=== PATIENT | male | born 1975 | race Caucasian/White ===

== ENCOUNTER 2017-10-23 04:19 | Emergency (ER) | payer SELFPAY ==
[~2017-10-23] VITALS: Ht 200.7 cm; Wt 147.4 kg
[~2017-10-23 04:19] MED LIST: ACHYD1T GT; ACHYD1T PO; CPR500T PO; CYCL10TA9 PO; MECL-124 PO; MECL25TA56 PO; NITR100C3 PO; ONDAN4ODT PO; OXYC-109 PO; OXYC-272 PO; PNT40TEC PO; PRM25T PO
--- OUTSIDE RECORDS SUMMARY | 2017-10-23 04:24 | XMS REPORT | Continuity of Care Document ---
Author Author [facility] Organization [facility] Address Unknown Phone Unavailable Allergies Active Description Code Type Severity Reaction Onset Reported/Identified Relationship to Patient Clinical Status Yes BEES BEES Unknown N/A 12/24/2009 Medications There is no data. Problems Date Dx Coded Attending Type Code Diagnosis Diagnosed By 12/24/2009 Ot 591 12/24/2009 Ot 592.1 12/24/2009 Ot 599.0 12/24/2009 Ot 789.09 12/26/2009 Ot 592.1 12/26/2009 Ot 789.00 01/15/2010 Ot 592.1 01/15/2010 Ot 789.09 01/21/2010 Ot 592.0 01/21/2010 Ot 592.1 04/08/2010 Ot 275.41 04/08/2010 Ot 276.51 04/08/2010 Ot 278.00 04/08/2010 Ot 304.30 04/08/2010 Ot 305.60 04/08/2010 Ot 401.9 04/08/2010 Ot 530.81 04/08/2010 Ot 553.3 04/08/2010 Ot 787.91 04/08/2010 Ot V13.01 04/08/2010 Ot V85.36 03/31/2011 Ot 278.00 03/31/2011 Ot 592.1 03/31/2011 Ot V85.39 01/17/2012 Ot 535.50 01/17/2012 Ot 562.10 01/17/2012 Ot 577.0 01/17/2012 Ot 789.00 02/25/2013 BRIDGET TOWNSEND DO Ot 816.10 02/25/2013 BRIDGET TOWNSEND DO Ot 959.5 02/25/2013 BRIDGET TOWNSEND DO Ot E000.8 02/25/2013 BRIDGET TOWNSEND DO Ot E029.9 02/25/2013 BRIDGET TOWNSEND DO Ot E849.0 02/25/2013 BRIDGET TOWNSEND DO Ot E918 02/25/2013 BRIDGET TOWNSEND DO Ot V06.1 03/15/2014 GUILLE FELDMAN MD Ot 780.4 03/15/2014 GUILLE FELDMAN MD Ot 787.01 11/17/2014 Ot 592.1 11/17/2014 Ot V72.83 11/17/2014 Ot V74.8 11/17/2014 Ot 592.1 11/17/2014 Ot V67.09 11/17/2014 Ot 401.9 11/17/2014 Ot 530.81 11/17/2014 Ot 780.4 11/17/2014 Ot 782.62 11/17/2014 Ot 786.07 11/17/2014 Ot 786.09 11/17/2014 MARCO ANTONIO DELAROSA MD Ot 783.21 Procedures There is no data. Results There is no data. Encounters ACCT No. Visit Date/Time Discharge Status Pt. Type Provider Facility Loc./Unit Complaint [id number] 12/19/2014 12:45:00 12/19/2014 23:59:59 CLS Outpatient MARCO ANTONIO DELAROSA MD [facility] [id number] 12/17/2014 13:23:00 12/17/2014 16:16:00 DIS Emergency VINNY HARVEY [facility] ER [id number] 11/17/2014 09:41:00 11/17/2014 13:12:00 DIS Emergency GUILLE FELDMAN MD [facility] ER [id number] 03/15/2014 09:33:00 03/15/2014 12:30:00 DIS Emergency GUILLE FELDMAN MD [facility] ER [id number] 02/25/2013 10:02:00 02/25/2013 13:48:00 DIS Emergency KRISTIANBRIDGET Nagy DO [facility] ER [id number] 01/12/2013 08:33:00 01/12/2013 23:59:59 CLS Outpatient MARCO ANTONIO DELAROSA MD [facility] LAB [id number] 05/09/2012 09:46:00 Document Registration [id number] 01/17/2012 07:20:00 Document Registration [id number] 04/13/2011 14:48:00 Document Registration [id number] 03/31/2011 01:40:00 Document Registration [id number] 04/08/2010 08:10:00 Document Registration [id number] 01/21/2010 06:02:00 Document Registration [id number] 01/20/2010 14:34:00 Document Registration [id number] 01/15/2010 15:34:00 Document Registration [id number] 12/26/2009 07:40:00 Document Registration [id number] 12/24/2009 19:00:00 Document Registration
[2017-10-23] MEDS ORDERED: ONDANSETRON 4 MG/2 ML (SDV) Z0FRAN ONE (04:26)
[2017-10-23] MEDS ORDERED: fentaNYL INJECTION 100 MCG/2 ML AMP ONE (04:26)
[2017-10-23] MEDS ORDERED: KETOROLAC 30 MG/ML VIAL ONE (04:27)
[2017-10-23] MEDS ORDERED: NS IV 1000 ML 1,000 ML ONE (04:27)
[2017-10-23] MEDS ORDERED: NS IV 1000 ML 1,000 ML IV STA (04:29)
[2017-10-23] MEDS ORDERED: fentaNYL INJECTION 100 MCG/2 ML AMP IVP STA (04:29)
[2017-10-23] MEDS ORDERED: KETOROLAC 30 MG/ML VIAL IVP STA (04:29)
[2017-10-23] MEDS ORDERED: ONDANSETRON 4 MG/2 ML (SDV) Z0FRAN IVP ONE (04:30)
--- NOTE | 2017-10-23 04:43 | ED GU-Male ---
General Stated Complaint: POSS KIDNEY STONE/DIFF URINATING Source: patient Exam Limitations: no limitations History of Present Illness Date Seen by Provider: October 23, 2017 Time Seen by Provider: 04:26 Initial Comments Here with report of urinating blood and having fairly significant lower abdominal: Left flank/back pain. Onset a few days ago and has been intermittent since. He actually thought he was a little better and then this morning got markedly worse. He did take an old antibiotic plus Percocet last night and has had not had any relief from that. Reports urinary frequency. Complains of chills and shivering. Has had nausea but no vomiting. History of kidney stones in the past. Timing/Duration: getting worse, changing over time Severity/Quality: moderate, severe, aching, sharp Location: suprapubic, left flank Radiation: none Activities at Onset: none Modifying Factors: Worsens With Movement, Worsens With Urinating Associated Symptoms: dysuria, fever/chills, lower back pain, nausea/vomiting, urinary frequency Allergies and Home Medications Allergies Uncoded Allergies: BEES (Allergy, 12/24/09) Home Medications Ciprofloxacin HCl 500 Mg Tablet, 500 MG PO BID Prescribed by: DONNA ROJAS on 10/23/17526 Cyclobenzaprine Hcl 10 Mg Tablet, 1 EACH PO Q8H PRN for SPASMS Prescribed by: VINNY KO on 12/17/14 1605 Hydrocodone Bit/Acetaminophen 1 Ea Tablet, 1 EACH PO Q6H Prescribed by: DONNA ROJAS on 10/23/17526 Phenazopyridine HCl 100 Mg Tablet, 100 MG PO Q8H Prescribed by: DONNA ROJAS on 10/23/17526 Patient Home Medication List Home Medication List Reviewed: Yes Review of Systems Constitutional: see HPI, chills; No fever, No weakness EENTM: no symptoms reported Respiratory: no symptoms reported; No cough, No short of breath Cardiovascular: no symptoms reported Gastrointestinal: nausea; No vomiting Genitourinary: see HPI, burning, dysuria, frequency, flank pain, hematuria, pain, urgency Musculoskeletal: see HPI, back pain; No muscle pain Skin: no symptoms reported Psychiatric/Neurological: No Symptoms Reported All Other Systemes Reviewed Negative Unless Noted: Yes Past Gaapxzq-Ytmmoe-Qaadjh Hx Past Med/Social Hx: Reviewed Nursing Past Med/Soc Hx Patient Social History Alcohol Use: Denies Use Recreational Drug Use: No Smoking Status: Never a Smoker Recent Foreign Travel: No Contact w/Someone Who Travel: No Immunizations Up To Date Tetanus Booster (TDap): Unknown Seasonal Allergies Seasonal Allergies: No Past Medical History Surgeries: Yes Orthopedic Respiratory: No Cardiac: No Neurological: No Reproductive Disorders: Yes Sexually Transmitted Disease: Yes (hx of genital warts, removed by Dr. Roman 1993) Genitourinary: Yes Kidney Stones Gastrointestinal: No Musculoskeletal: No Endocrine: No Psychosocial: No Family Medical History Reviewed Nursing Family Hx No Pertinent Family Hx Physical Exam Vital Signs Vital Signs - First Documented 10/23/17 04:25 Temp 98.2 Pulse 85 Resp 20 B/P (MAP) 149/114 (126) Pulse Ox 99 O2 Delivery Room Air Capillary Refill : General Appearance: WD/WN, moderate distress HEENT: PERRL/EOMI, pharynx normal Neck: full range of motion, supple Cardiovascular: regular rate, rhythm, no murmur Respiratory: lungs clear, no respiratory distress Gastrointestinal: non tender, soft Back: normal inspection, no CVA tenderness, no vertebral tenderness Extremities: non-tender, normal inspection, no pedal edema Neurologic/Psychiatric: alert, oriented x 3 Skin: normal color, warm/dry Progress/Results/Core Measures Suspected Sepsis SIRS Temperature: Pulse: Respiratory Rate: Laboratory Tests 10/23/17 04:36: White Blood Count 13.1H Blood Pressure / Mean: Laboratory Tests 10/23/17 04:36: Creatinine 1.01, Platelet Count 203, Total Bilirubin 0.3 Results/Orders Lab Results Laboratory Tests Test 10/23/17 04:36 10/23/17 04:39 Range/Units White Blood Count 13.1 H 4.3-11.0 10^3/uL Red Blood Count 4.88 4.35-5.85 10^6/uL Hemoglobin 14.8 13.3-17.7 G/DL Hematocrit 43 40-54 % Mean Corpuscular Volume 88 80-99 FL Mean Corpuscular Hemoglobin 30 25-34 PG Mean Corpuscular Hemoglobin Concent 35 32-36 G/DL Red Cell Distribution Width 12.4 10.0-14.5 % Platelet Count 203 130-400 10^3/uL Mean Platelet Volume 10.5 H 7.4-10.4 FL Neutrophils (%) (Auto) 72 42-75 % Lymphocytes (%) (Auto) 18 12-44 % Monocytes (%) (Auto) 7 0-12 % Eosinophils (%) (Auto) 4 0-10 % Basophils (%) (Auto) 0 0-10 % Neutrophils # (Auto) 9.4 H 1.8-7.8 X 10^3 Lymphocytes # (Auto) 2.3 1.0-4.0 X 10^3 Monocytes # (Auto) 0.9 0.0-1.0 X 10^3 Eosinophils # (Auto) 0.5 H 0.0-0.3 10^3/uL Basophils # (Auto) 0.0 0.0-0.1 10^3/uL Sodium Level 139 135-145 MMOL/L Potassium Level 4.0 3.6-5.0 MMOL/L Chloride Level 108 H 98-107 MMOL/L Carbon Dioxide Level 20 L 21-32 MMOL/L Anion Gap 11 5-14 MMOL/L Blood Urea Nitrogen 12 7-18 MG/DL Creatinine 1.01 0.60-1.30 MG/DL Estimat Glomerular Filtration Rate > 60 BUN/Creatinine Ratio 12 Glucose Level 127 H 70-105 MG/DL Calcium Level 9.9 8.5-10.1 MG/DL Total Bilirubin 0.3 0.1-1.0 MG/DL Aspartate Amino Transf (AST/SGOT) 25 5-34 U/L Alanine Aminotransferase (ALT/SGPT) 36 0-55 U/L Alkaline Phosphatase 70 40-136 U/L Total Protein 7.4 6.4-8.2 GM/DL Albumin 4.2 3.2-4.5 GM/DL Urine Color YELLOW Urine Clarity SLIGHTLY CLOUDY Urine pH 5 5-9 Urine Specific [place] 1.020 1.016-1.022 Urine Protein 3+ H NEGATIVE Urine Glucose (UA) NEGATIVE NEGATIVE Urine Ketones NEGATIVE NEGATIVE Urine Nitrite NEGATIVE NEGATIVE Urine Bilirubin NEGATIVE NEGATIVE Urine Urobilinogen NORMAL NORMAL MG/DL Urine Leukocyte Esterase 3+ H NEGATIVE Urine RBC (Auto) 5+ H NEGATIVE Urine RBC 50-100 H /HPF Urine WBC 50-100 H /HPF Urine Squamous Epithelial Cells 2-5 /HPF Urine Crystals NONE /LPF Urine Bacteria MODERATE H /HPF Urine Casts NONE /LPF Urine Mucus MODERATE H /LPF Urine Culture Indicated YES My Orders Orders - DONNA ROJAS MD Cbc With Automated Diff (10/23/17 04:29) Comprehensive Metabolic Panel (10/23/17 04:29) Ua Culture If Indicated (10/23/17 04:29) Fentanyl Injection (Sublimaze Injection (10/23/17 04:29) Ketorolac Injection (Toradol Injection) (10/23/17 04:29) Ondansetron Injection (Zofran Injectio (10/23/17 04:30) Ns Iv 1000 Ml (Sodium Chloride 0.9%) (10/23/17 04:29) Saline Lock/Iv-Start (10/23/17 04:29) Ct Abd/Pelvis Wo(Kidney Stone) (10/23/17 04:29) Fentanyl Injection (Sublimaze Injection (10/23/17 04:26) Ondansetron Injection (Zofran Injectio (10/23/17 04:26) Ketorolac Injection (Toradol Injection) (10/23/17 04:27) Ns Iv 1000 Ml (Sodium Chloride 0.9%) (10/23/17 04:27) Urine Culture (10/23/17 04:39) Ciprofloxacin Tablet (Cipro Tablet) (10/23/17 05:30) Phenazopyridine Tablet (Pyridium Tablet) (10/23/17 05:30) Hydrocodone/Apap 7.5/325 Tab (Lortab 7. (10/23/17 05:17) Saline Lock/Iv-Start (10/23/17 05:17) Ns Iv 1000 Ml (Sodium Chloride 0.9%) (10/23/17 05:17) Medications Given in ED Current Medications Medications Dose Ordered Sig/Annelise Route Start Time Stop Time Status Last Admin Dose Admin Ondansetron HCl 4 mg ONCE ONCE IVP 10/23/17 04:30 10/23/17 04:33 DC 10/23/17 04:41 4 MG Phenazopyridine HCl 200 mg ONCE ONCE PO 10/23/17 05:30 10/23/17 05:31 DC 10/23/17 05:25 200 MG Sodium Chloride 1,000 ml @ 0 mls/hr Q0M ONCE IV 10/23/17 05:17 10/23/17 05:19 DC 10/23/17 05:21 1,000 MLS/HR Vital Signs/I&O 10/23/17 04:25 Temp 98.2 Pulse 85 Resp 20 B/P (MAP) 149/114 (126) Pulse Ox 99 O2 Delivery Room Air Capillary Refill : Progress Note : Progress Note Seen and evaluated. IV, labs and UA ordered. Normal saline 1 L bolus. Fentanyl 75 g IV, Toradol 30 mg IV and Zofran [address] abdomen pelvis rule out kidney stone ordered. Monitor patient. 0515: Repeat normal saline 1 L bolus. Urinary tract infection noted on UA. Cipro 500 mg by mouth ordered. Pyridium 200 mg by mouth. Hydrocodone 7.5/325 one tab by mouth ordered. We will repeat normal saline 1 L bolus to ensure that there is continued urine flow and to prevent hematuria from forming obstructive clots. Patient was in agreement. Anticipate discharge after. 0600: CT results noted. Discharged home with return precautions. Patient verbalize understanding instructions and agreement with plan. We will increase Cipro prescription to total of 14 days due to concerns of prostatitis. Diagnostic Imaging Diagonstic Imaging: CT Plain Films/CT/US/NM/MRI: abdomen, pelvis Comments Punctate nonobstructing stone in the interpolar region of each kidney. No hydronephrosis. Suspected bowel wall thickening versus under distention of the urinary bladder. Correlate clinically with urinalysis to exclude cystitis. Fat stranding strength; no vesicles and prostate raising concern for prostatitis /seminal vesicle colitis. Correlate clinically. Reviewed: Reviewed [place] Hawk Study, Reviewed by Me Departure Impression Primary Impression: Urinary tract infection Qualified Codes: N30.01 - Acute cystitis with hematuria Disposition: HOME, SELF-CARE Condition: Improved Departure-Patient Inst. Decision time for Depature: 06:00 Referrals: NO,LOCAL PHYSICIAN (PCP/Family) Primary Care Physician Patient Instructions: Blood in the Urine (Hematuria) in Adults, Urinary Tract Infection, Adult (DC) Add. Discharge Instructions: Take medications as directed. You may take ibuprofen 800 mg every 8 hours as needed for pain as well. You may take Tylenol/acetaminophen 1000 mg every 8 hours as needed for pain if you are not taking any prescribed pain medicine ( hydrocodone/acetaminophen combination). It is very important that he drink plenty of fluids. Follow-up with your doctor in a few days for recheck. Return for worse pain, fever, vomiting, weakness, breathing problems or other concerns as needed. Scripts Hydrocodone Bit/Acetaminophen (LORTAB 7.5 MG TABLET) 1 Ea Tablet 1 EACH PO Q6H, #8 TAB 0 Refills Prov: DONNA ROJAS MD 10/23/17 Ciprofloxacin HCl (Ciprofloxacin HCl) 500 Mg Tablet 500 MG PO BID, #10 TAB Prov: DONNA ROJAS MD 10/23/17 Phenazopyridine HCl (Pyridium) 100 Mg Tablet 100 MG PO Q8H, #6 TAB 0 Refills Prov: DONNA ROJAS MD 10/23/17 DONNA ROJAS MD October 23, 2017 04:43
[2017-10-23 04:47] LABS: BASOPHILS % (AUTO) 0 % (0-10); EOSINOPHILS # (AUTO) 0.5 10^3/uL (0.0-0.3); EOSINOPHILS % (AUTO) 4 % (0-10); HEMATOCRIT 43 % (40-54); HEMOGLOBIN 14.8 G/DL (13.3-17.7); LYMPHOCYTES # (AUTO) 2.3 X 10^3 (1.0-4.0); LYMPHOCYTES % (AUTO) 18 % (12-44); MEAN CORPUSCULAR HEMOGLOBIN 30 PG (25-34); MEAN CORPUSCULAR HGB CONC 35 G/DL (32-36); MEAN CORPUSCULAR VOLUME 88 FL (80-99); MEAN PLATELET VOLUME 10.5 FL (7.4-10.4); MONOCYTES # (AUTO) 0.9 X 10^3 (0.0-1.0); MONOCYTES % (AUTO) 7 % (0-12); NEUTROPHILS # (AUTO) 9.4 X 10^3 (1.8-7.8); NEUTROPHILS % (AUTO) 72 % (42-75); PLATELET COUNT 203 10^3/uL (130-400); RED BLOOD COUNT 4.88 10^6/uL (4.35-5.85); RED CELL DISTRIBUTION WIDTH 12.4 % (10.0-14.5); WHITE BLOOD COUNT 13.1 10^3/uL (4.3-11.0)
[2017-10-23 04:48] LABS: BILIRUBIN,URINE NEGATIVE (NEGATIVE); CLARITY,URINE SLIGHTLY CLOUDY; COLOR,URINE YELLOW; GLUCOSE, URINE (UA) NEGATIVE (NEGATIVE); KETONES,URINE NEGATIVE (NEGATIVE); LEUKOCYTE ESTERASE ,URINE 3+ (NEGATIVE); NITRITE,URINE NEGATIVE (NEGATIVE); PH,URINE 5 (5-9); PROTEIN,URINE 3+ (NEGATIVE); UROBILINOGEN,URINE NORMAL (NORMAL)
[2017-10-23 04:57] LABS: BACTERIA,URINE MODERATE /HPF; RBC,URINE 50-100 /HPF; WBC,URINE 50-100 /HPF
[2017-10-23 05:11] LABS: BUN/CREATININE RATIO 12; CARBON DIOXIDE 20 MMOL/L (21-32); CHLORIDE 108 MMOL/L (98-107); CREATININE SERUM 1.01 MG/DL (0.60-1.30); SODIUM 139 MMOL/L (135-145)
[2017-10-23 05:12] LABS: ALANINE AMINOTRANSFERASE 36 U/L (0-55); ALBUMIN 4.2 GM/DL (3.2-4.5); ALKALINE PHOSPHATASE 70 U/L (40-136); BILIRUBIN,TOTAL 0.3 MG/DL (0.1-1.0); CALCIUM 9.9 MG/DL (8.5-10.1); GFR ESTIMATED > 60; GLUCOSE 127 MG/DL (70-105); TOTAL PROTEIN 7.4 GM/DL (6.4-8.2)
[2017-10-23] MEDS ORDERED: HYDROcodone/APAP 7.5 MG/325 MG (LORTAB, LORCET PLUS) TABLET PO STA (05:17)
[2017-10-23] MEDS ORDERED: NS IV 1000 ML 1,000 ML IV ONE (05:17)
[2017-10-23] MEDS ORDERED: PHEN-639 PO (05:27)
[2017-10-23] MEDS ORDERED: HYDR-34 PO (05:27)
[2017-10-23] MEDS ORDERED: CIPR500T4 PO (05:27)
[2017-10-23] MEDS ORDERED: PHENAZOPYRIDINE 100 MG (PYRIDIUM) TABLET PO ONE (05:30)
[2017-10-23] MEDS ORDERED: CIPROFLOXACIN 500 MG (CIPRO) TABLET PO SCH (05:30)
[2017-10-23 06:11] VITALS: BP 157/91
--- NOTE | 2017-10-23 07:41 | Diagnostic Imaging Report ---
PROCEDURE: CT urinary tract, rule out kidney stone. TECHNIQUE: Multiple contiguous axial images were obtained through the abdomen and pelvis without the use of intravenous contrast. INDICATION: Abdominal pain. Hematuria. Possible kidney stone. COMPARISON: CT abdomen and pelvis with IV contrast 01/17/2012. FINDINGS: The lung bases are clear. The liver, gallbladder, pancreas, spleen, adrenals and collecting systems are negative. Under distention of the urinary bladder versus wall thickening. Punctate 0.2 cm nonobstructing calyceal tip renal stone in the right kidney. Negative left kidney. Negative appendix. Mild inflammatory stranding about the seminal vesicles and prostate. No free intraperitoneal air or fluid. No lymphadenopathy. No evidence of bowel obstruction. Minimal atherosclerotic calcifications. No acute osseous findings. IMPRESSION: 1. Punctate nonobstructing calyceal tip renal stone in the right kidney. No ureteral stones or hydronephrosis bilaterally. 2. Urinary bladder wall thickening versus underdistention. 3. Mild fat stranding about the seminal vesicles is nonspecific but may represent a degree of prostatitis. Dictated by: Dictated on workstation # [id number]
== END 2017-10-23 06:11 | disposition home or self-care (01) ==
LOC: EDUNIT# 04:19 → ER 04:20
DX: N39.0 Urinary tract infection, site not specified (principal); Z87.442 Personal history of urinary calculi
CPT/HCPCS: 36415; 74176; 80053; 81000; 85025; 87088; 87186; 96361; 96374; 96375

== ENCOUNTER 2017-11-25 11:51 | Emergency (ER) | payer SELFPAY ==
[~2017-11-25] VITALS: Ht 205.7 cm; Wt 149.7 kg
[~2017-11-25 11:51] MED LIST changes: +CIPR500T4 PO; +HYDR-34 PO; +PHEN-639 PO
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
--- NOTE | 2017-11-25 12:14 | ED General ---
General Chief Complaint: Dizziness/Syncope Stated Complaint: DIZZY,HIGH BP Nursing Triage Note: PT CO OF DIZZINESS, STATES STARTED THIS AM, STATES SO DIZZY FELL OFF STOOL. DENIES INJURY Nursing Sepsis Screen: No Definite Risk Source of Information: Patient Exam Limitations: No Limitations History of Present Illness Date Seen by Provider: Nov 25, 2017 Time Seen by Provider: 12:10 Initial Comments To ER with reports of dizziness upon awakening at 7 AM this morning. He was scheduled to take medication but that was canceled due to the severe dizziness. He also feels very anxious which is unusual for him. He noticed at home his blood pressure to be elevated at 217 systolic. He denies any headache or nausea vomiting fevers or chills. He does report noticing a tick bite to the left lateral thigh about 3 weeks ago. Since then he's noticed some unusual joint pains. 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 He denies rash or fevers. Timing/Duration: 4-6 Hours Severity: Moderate Associated Systoms: No Headaches, No Nausea/Vomiting Allergies and Home Medications Allergies Uncoded Allergies: BEES (Allergy, Unknown, 10/27/17) Home Medications Ciprofloxacin HCl 500 Mg Tablet, 500 MG PO BID Prescribed by: DONNA ROJAS on 10/23/17526 Cyclobenzaprine Hcl 10 Mg Tablet, 1 EACH PO Q8H PRN for SPASMS Prescribed by: VINNY KO on 12/17/14 1605 Hydrocodone Bit/Acetaminophen 1 Ea Tablet, 1 EACH PO Q6H Prescribed by: DONNA ROJAS on 10/23/17 0527 Meclizine HCl 25 Mg Tablet, 25 MG PO TID PRN for DIZZINESS Prescribed by: ARON WOOD on 11/25/17 1355 Phenazopyridine HCl 100 Mg Tablet, 100 MG PO Q8H Prescribed by: DONNA ROJAS on 10/23/17 0527 Patient Home Medication List Home Medication List Reviewed: Yes Review of Systems Constitutional: see HPI EENTM: see HPI Respiratory: no symptoms reported Cardiovascular: no symptoms reported Genitourinary: no symptoms reported Musculoskeletal: no symptoms reported Skin: no symptoms reported Psychiatric/Neurological: See HPI, Other (dizziness) Immunological/Allergic: no symptoms reported Past Gzfiewz-Ebnjis-Gaqjim Hx Patient Social History Recent Foreign Travel: No Contact w/Someone Who Travel: No Recent Infectious Disease Expo: No Recent Hopitalizations: Yes (01/20-kidney stones, uti';scope '95 torn urethra; resp. illness as a child) Immunizations Up To Date Tetanus Booster (TDap): Unknown Seasonal Allergies Seasonal Allergies: No Past Medical History Surgeries: Yes Orthopedic Respiratory: No Cardiac: No Neurological: No Reproductive Disorders: Yes Sexually Transmitted Disease: Yes (hx of genital warts, removed by Dr. Roman 1993) Genitourinary: Yes Kidney Stones Gastrointestinal: No Musculoskeletal: No Endocrine: No Cancer: No Psychosocial: No Integumentary: No Blood Disorders: No Family Medical History No Pertinent Family Hx Physical Exam Vital Signs Vital Signs - First Documented 11/25/17 12:00 Temp 98.1 Pulse 70 Resp 18 B/P (MAP) 154/93 (113) Pulse Ox 100 Capillary Refill : Less Than 3 Seconds General Appearance: No Apparent Distress, WD/WN Eyes: Bilateral Eye Normal Inspection, Bilateral Eye PERRL, Bilateral Eye EOMI HEENT: PERRL/EOMI, TMs Normal Neck: Full Range of Motion, Normal Inspection Respiratory: No Accessory Muscle Use, No Respiratory Distress Cardiovascular: Regular Rate, Rhythm, Normal Peripheral Pulses Gastrointestinal: Normal Bowel Sounds, Non Tender, Soft Extremity: Normal Capillary Refill, Normal Inspection Neurologic/Psychiatric: Alert, Oriented x3, Other (there is no horizontal or vertical nystagmus, ) Skin: Normal Color, Warm/Dry Progress/Results/Core Measures Suspected Sepsis Recent Fever Within 48 Hours: No Infection Criteria Present: None New/Unexplained Altered Menta: No Sepsis Screen: No Definite Risk SIRS Temperature:98.1 Pulse: 70 Respiratory Rate: 18 Laboratory Tests 11/25/17 12:20: White Blood Count 8.0 Blood Pressure 154 /93 Mean: 113 Laboratory Tests 11/25/17 12:20: Creatinine 0.80, Platelet Count 184, Total Bilirubin 0.7 Results/Orders Lab Results Laboratory Tests Test 11/25/17 12:20 11/25/17 12:38 Range/Units White Blood Count 8.0 4.3-11.0 10^3/uL Red Blood Count 5.09 4.35-5.85 10^6/uL Hemoglobin 15.5 13.3-17.7 G/DL Hematocrit 44 40-54 % Mean Corpuscular Volume 86 80-99 FL Mean Corpuscular Hemoglobin 31 25-34 PG Mean Corpuscular Hemoglobin Concent 36 32-36 G/DL Red Cell Distribution Width 12.9 10.0-14.5 % Platelet Count 184 130-400 10^3/uL Mean Platelet Volume 10.2 7.4-10.4 FL Neutrophils (%) (Auto) 68 42-75 % Lymphocytes (%) (Auto) 22 12-44 % Monocytes (%) (Auto) 5 0-12 % Eosinophils (%) (Auto) 5 0-10 % Basophils (%) (Auto) 0 0-10 % Neutrophils # (Auto) 5.5 1.8-7.8 X 10^3 Lymphocytes # (Auto) 1.8 1.0-4.0 X 10^3 Monocytes # (Auto) 0.4 0.0-1.0 X 10^3 Eosinophils # (Auto) 0.4 H 0.0-0.3 10^3/uL Basophils # (Auto) 0.0 0.0-0.1 10^3/uL Sodium Level 140 135-145 MMOL/L Potassium Level 3.8 3.6-5.0 MMOL/L Chloride Level 111 H 98-107 MMOL/L Carbon Dioxide Level 20 L 21-32 MMOL/L Anion Gap 9 5-14 MMOL/L Blood Urea Nitrogen 8 7-18 MG/DL Creatinine 0.80 0.60-1.30 MG/DL Estimat Glomerular Filtration Rate > 60 BUN/Creatinine Ratio 10 Glucose Level 115 H 70-105 MG/DL Calcium Level 9.5 8.5-10.1 MG/DL Total Bilirubin 0.7 0.1-1.0 MG/DL Aspartate Amino Transf (AST/SGOT) 16 5-34 U/L Alanine Aminotransferase (ALT/SGPT) 26 0-55 U/L Alkaline Phosphatase 69 40-136 U/L Total Protein 7.1 6.4-8.2 GM/DL Albumin 4.1 3.2-4.5 GM/DL Urine Color YELLOW Urine Clarity CLEAR Urine pH 9 5-9 Urine Specific [place] 1.015 L 1.016-1.022 Urine Protein 2+ H NEGATIVE Urine Glucose (UA) NEGATIVE NEGATIVE Urine Ketones NEGATIVE NEGATIVE Urine Nitrite NEGATIVE NEGATIVE Urine Bilirubin NEGATIVE NEGATIVE Urine Urobilinogen NORMAL NORMAL MG/DL Urine Leukocyte Esterase 1+ H NEGATIVE Urine RBC (Auto) NEGATIVE NEGATIVE Urine RBC NONE /HPF Urine WBC 0-2 /HPF Urine Squamous Epithelial Cells RARE /HPF Urine Crystals NONE /LPF Urine Bacteria NEGATIVE /HPF Urine Casts NONE /LPF Urine Mucus NEGATIVE /LPF Urine Culture Indicated NO My Orders Orders - ARON WOOD APRN Cbc With Automated Diff (11/25/17 12:09) Comprehensive Metabolic Panel (11/25/17 12:09) Ua Culture If Indicated (11/25/17 12:09) Iv Heplock-Insert (Order) (11/25/17 12:09) Ekg Tracing (11/25/17 12:09) Meclizine Tablet (Antivert Tablet) (11/25/17 12:15) Lorazepam Injection (Ativan Injection) (11/25/17 12:15) Tick Panel With Lyme Eia (11/25/17 12:09) Ct Head Wo (11/25/17 13:03) Medications Given in ED Current Medications Medications Dose Ordered Sig/Annelise Route Start Time Stop Time Status Last Admin Dose Admin Lorazepam 0.5 mg ONCE ONCE IVP 11/25/17 12:15 11/25/17 12:16 DC 11/25/17 12:20 0.5 MG Meclizine HCl 25 mg ONCE ONCE PO 11/25/17 12:15 11/25/17 12:16 DC 11/25/17 12:20 25 MG Vital Signs/I&O 11/25/17 12:00 Temp 98.1 Pulse 70 Resp 18 B/P (MAP) 154/93 (113) Pulse Ox 100 Capillary Refill : Less Than 3 Seconds Blood Pressure Mean: 113 Departure Impression Primary Impression: Vertigo Disposition: 01 HOME, SELF-CARE Condition: Stable Departure-Patient Inst. Decision time for Depature: 13:54 Referrals: MATEUSZ CUEVA MD (PCP/Family) Primary Care Physician Patient Instructions: Vertigo (a Type of Dizziness) (DC) Add. Discharge Instructions: 1. Follow-up with Dr. Cueva next week 2. Take the dizziness medication as directed 3. Return to ER for any concerns. All discharge instructions reviewed with patient and/or family. Voiced understanding. Scripts Meclizine HCl (Meclizine HCl) 25 Mg Tablet 25 MG PO TID PRN for DIZZINESS, #15 TAB Prov: ARON WOOD APRN 11/25/17 ARON WOOD APRN Nov 25, 2017 12:14
[2017-11-25] MEDS ORDERED: MECLIZINE 25 MG (ANTIVERT) TAB PO ONE (12:15)
[2017-11-25] MEDS ORDERED: LORazepam INJ 2 MG/ML (ATIVAN) VIAL IVP ONE (12:15)
[2017-11-25 12:37] LABS: BASOPHILS % (AUTO) 0 % (0-10); EOSINOPHILS # (AUTO) 0.4 10^3/uL (0.0-0.3); EOSINOPHILS % (AUTO) 5 % (0-10); HEMATOCRIT 44 % (40-54); HEMOGLOBIN 15.5 G/DL (13.3-17.7); LYMPHOCYTES # (AUTO) 1.8 X 10^3 (1.0-4.0); LYMPHOCYTES % (AUTO) 22 % (12-44); MEAN CORPUSCULAR HEMOGLOBIN 31 PG (25-34); MEAN CORPUSCULAR HGB CONC 36 G/DL (32-36); MEAN CORPUSCULAR VOLUME 86 FL (80-99); MEAN PLATELET VOLUME 10.2 FL (7.4-10.4); MONOCYTES # (AUTO) 0.4 X 10^3 (0.0-1.0); MONOCYTES % (AUTO) 5 % (0-12); NEUTROPHILS # (AUTO) 5.5 X 10^3 (1.8-7.8); NEUTROPHILS % (AUTO) 68 % (42-75); PLATELET COUNT 184 10^3/uL (130-400); RED BLOOD COUNT 5.09 10^6/uL (4.35-5.85); RED CELL DISTRIBUTION WIDTH 12.9 % (10.0-14.5)
[2017-11-25 12:43] LABS: BILIRUBIN,URINE NEGATIVE (NEGATIVE); CLARITY,URINE CLEAR; COLOR,URINE YELLOW; GLUCOSE, URINE (UA) NEGATIVE (NEGATIVE); KETONES,URINE NEGATIVE (NEGATIVE); LEUKOCYTE ESTERASE ,URINE 1+ (NEGATIVE); NITRITE,URINE NEGATIVE (NEGATIVE); PH,URINE 9 (5-9); PROTEIN,URINE 2+ (NEGATIVE); UROBILINOGEN,URINE NORMAL (NORMAL)
[2017-11-25 12:50] LABS: BACTERIA,URINE NEGATIVE /HPF; SQUAMOUS EPITHELIAL CELL,UR RARE /HPF; WBC,URINE 0-2 /HPF
[2017-11-25 12:55] LABS: ALANINE AMINOTRANSFERASE 26 U/L (0-55); ALBUMIN 4.1 GM/DL (3.2-4.5); ALKALINE PHOSPHATASE 69 U/L (40-136); BILIRUBIN,TOTAL 0.7 MG/DL (0.1-1.0); BUN/CREATININE RATIO 10; CALCIUM 9.5 MG/DL (8.5-10.1); CARBON DIOXIDE 20 MMOL/L (21-32); CHLORIDE 111 MMOL/L (98-107); GFR ESTIMATED > 60; GLUCOSE 115 MG/DL (70-105); POTASSIUM 3.8 MMOL/L (3.6-5.0); SODIUM 140 MMOL/L (135-145); TOTAL PROTEIN 7.1 GM/DL (6.4-8.2)
[2017-11-25] MEDS ORDERED: MECL-106 PO (13:55)
--- NOTE | 2017-11-25 13:57 | Diagnostic Imaging Report ---
PROCEDURE: CT head without contrast. TECHNIQUE: Multiple contiguous axial images were obtained through the brain without the use of intravenous contrast. INDICATION: Dizziness. COMPARISON: Comparison is made with prior study from 03/15/2014. FINDINGS: Ventricles and sulci are within normal limits. No sulcal effacement or midline shift is seen. No acute intra-axial or extra-axial hemorrhage is detected. The cisterns are patent. The visualized paranasal sinuses are clear. IMPRESSION: No acute intracranial process is detected. Dictated by: Dictated on workstation # [id number]
[2017-11-25 14:16] VITALS: BP 157/93
== END 2017-11-25 14:16 | disposition home or self-care (01) ==
LOC: EDUNIT# 11:51 → ER 11:52
DX: R42 Dizziness and giddiness (principal); Z87.442 Personal history of urinary calculi
CPT/HCPCS: 36415; 70450; 80053; 81000; 85025; 86618; 86666; 86668; 86757; 93005; 96374